=== PATIENT | female | born 1990 | race African-American/Black ===

== ENCOUNTER 2023-08-22 13:44 | Outpatient (RCR) | payer OTHER, SELFPAY ==
[2023-08-22 15:00] VITALS: BP 122/74; PULSE 87
[2023-08-22 15:28] LABS: Appearance Urine Clear (Clear); Bilirubin Urine Negative (Negative); Blood Urine Trace-intact (Negative); Color Urine Yellow (Yellow); Glucose Urine UA Negative (Negative); Ketones Urine Trace mg/dL (Negative); Leukocyte Esterase Ur Negative LEU/UL (Negative); Nitrate Urine Negative (Negative); Protein Urine Negative (Negative); Urobilinogen Urine 0.2 mg/dL (<2.0); pH Urine 6.5 (5.0-9.0)
[2023-08-22 15:34] LABS: Bacteria Urine None Seen /hpf; Non Pathogenic Casts 0-2; RBC Urine 0-2 /hpf (0-2); Squamous Epithelial Cell Urine None seen /hpf (Few); WBC Urine 0-5 /hpf
[2023-08-22 15:35] LABS: Add Urine Microscopic? YES
[2023-08-22 16:27] VITALS: BP 122/74; PULSE 87
== END 2023-10-03 11:25 | disposition home or self-care (01) ==
LOC: ANHOBOP 13:44
PROVIDERS: Visit Provider Obstetrics & Gynecology
DX: O26.893 Other specified pregnancy related conditions, third trimester (principal); Z3A.32 32 weeks gestation of pregnancy
CPT/HCPCS: 59025; 81001

== ENCOUNTER 2023-09-22 21:51 | Observation (INO) | payer OTHER, SELFPAY ==
--- NOTE | 2023-09-22 21:51 | OBADM ---
This patient, Emily Moreira, admitted to the OB room Labor/Delivery/Recovery 106 for observation. Patient/family oriented to hospital policies and general routines including ID bracelet, bed and alarms, visiting hours, pain management, procedures, bathroom and other care routines, personal items, smoking policy, room service/diet, and visiting hours. Patient/Family are encouraged to report perceived risks to care and to ask questions if they do not understand what they are told or what they should do.
[2023-09-22 22:08] VITALS: TEMP 36.8
--- NOTE | 2023-09-23 00:50 | PC.NURSE ---
Updated Dr. Lancaster on maternal and assessments. FHT appropriate for gestational age. Patient rayshawn regularly, contractions palpate mild-moderate. Patient tearful. ROM plus was negative. Orders received; patient may be discharged to home or if patient opts for stay for extended monitoring patient may due so if she feels more comfortable staying.
--- NOTE | 2023-09-23 00:55 | PC.NURSE ---
Plan of care discussed with patient. Patient states she would like to go home.
--- NOTE | 2023-09-23 01:05 | PC.NURSE ---
Discharge instructions reviewed with patient. During discharge instructions, labor precautions reviewed with patient. During review of labor precautions patient decided she would like to stay for monitoring in the hospital for a couple hours before being discharged to home.
[2023-09-23 03:20] VITALS: TEMP 36.8
--- NOTE | 2023-09-23 03:21 | PC.NURSE ---
Patient states pain is improved following interventions, stretching and positioning. Patient states she is able to rest comfortably and is able to sleep without complaint. Patient states she would like to go home at this time.
--- NOTE | 2023-09-23 03:23 | PC.NURSE ---
Discharge instructions reviewed with patient. Labor precautions reviewed. Patient instructed to follow up at her scheduled DrRoberto appointment with Dr. Wells this week. Patient states understanding of discharge instructions and denies questions.
--- NOTE | 2023-09-25 09:38 | PM.OBTRLD ---
OB - Triage/Final Diagnosis Visit Information Reason for evaluation: threatened labor Comments/Additional reasons for admission: I have assessed the risk for this patient, Emily T Lillie, and determined that she would benefit from observation care.
== END 2023-09-23 03:34 | disposition home or self-care (01) ==
PROVIDERS: Admitting Provider Obstetrics & Gynecology; Visit Provider Obstetrics & Gynecology
DX: O47.1 False labor at or after 37 completed weeks of gestation (principal); Z3A.37 37 weeks gestation of pregnancy
CPT/HCPCS: 84112; G0378; G0379

== ENCOUNTER 2023-10-01 07:51 | Inpatient (IN) | payer OTHER, SELFPAY ==
[2023-10-01] VITALS (61 sets, daily range): BP systolic 83–217; BP diastolic 42–200; PULSE 78–128; RESP 16–18; TEMP 36.5–38.3; O2SAT 79–100; BMI 31.2
--- NOTE | 2023-10-01 08:26 | PM.IMHP ---
H&P: HPI History of Present Illness Date/Time: 10/01/23 08:26 Chief Complaint: Contraction Narrative: Patient at 38 weeks presented to Labor and delivery with complaints of contractions regular. They started at midnight and increased at 3:00 a.m.. Cervical exam had changed to 3-4 cm on Labor and delivery today regular moderate contractions. She was admitted in active labor. Review of Systems Review of Systems: All systems reviewed & are unremarkable except as noted in HPI and below Constitutional: Constitutional: Reports no additional constitutional complaints and Denies headache(s) Eyes: Eyes: Denies spots in vision ENT: Reports system reviewed and no additional complaints, except as documented and Denies headache(s) Cardiovascular: Cardiovascular: Denies chest pain and Denies dyspnea Respiratory: Respiratory: Denies dyspnea Gastrointestinal: Gastrointestinal: Reports no additional gastrointestinal complaints Genitourinary: Genitourinary: Reports amenorrhea Musculoskeletal: Musculoskeletal: Reports no additional musculoskeletal complaints Integumentary/Breasts: Skin/Breast: Denies breast mass and Denies rash Neurologic: Denies headache(s) Psychiatric: Psychiatric: Reports no additional psychiatric complaints [facility] Past Medical History Medical History BMI 31.0-31.9,adult History of miscarriage x2 History of vaginal delivery x4 Surgical History Surgical History History of dilation and curettage 2014 Family History Family History Father Hypertension Mother Asthma Hypertension Sibling Asthma Grandparent Diabetes mellitus Maternal grandparent Social History Social History Smoking status: Never smoker Second hand tobacco smoke exposure: Yes Alcohol intake: former Substance use: never Substance use type: does not use Lack of Transportation: No Lack of Food: Never True Current Housing: I Have Housing Concerned About Future Housing: No Difficulty Paying Gas/Electric Bills: No Difficulty Paying for Meds: No Currently Unemployed: No Education: Trade/Vocational Certificate Difficulty w/ Childcare or Family Care: No Living arrangements: with family Occupation/Education: student Additional occupation/education comments: [employer] Gender identity (if verbalized by the patient): Female Sexual Orientation (if Verbalized by the Patient): Straight or Heterosexual Spiritual care concerns: No Meds Home Medications and Allergies Home Medications Medication Instructions Recorded Confirmed Type prenat.vits,mei,qcn-ltpo-nwsxh 1 tablet PO DAILY 04/16/23 10/01/23 History famotidine 20 mg tablet 20 mg PO BID #60 tabs 08/22/23 10/01/23 Rx ferrous sulfate 325 mg (65 mg 325 mg PO BID 08/22/23 10/01/23 History iron) tablet (Feosol) Allergies Allergy/AdvReac Type Severity Reaction Status Date / Time kiwi Allergy Hives Verified 09/26/23 11:40 Latex, Natural Rubber Allergy Swelling Verified 09/26/23 11:40 Exam Const: General: no acute distress Eyes: General: appearance normal, both eyes and all related structures Resp: Effort & Inspection: normal respiratory effort Cardio: Rate: regular rate GI: Other: Gravid no fundal tenderness no right upper quadrant pain Skin: General skin exam: no rashes or lesions noted Neuro: Cognition (Neuro): normal cognition Extrem: General: normal to inspection Psych: Mental Status: mental status grossly normal Assessment and Plan Assessment and plan (1) Active labor: Status: Acute Assessment and Plan: Admit. Display vaginal delivery.
[2023-10-01] MEDS: fentaNYL CITRATE INJ (*CRX) 100 MCG/2 ML VIAL IV PUSH (08:31)
[2023-10-01] MEDS: LACTATED RINGERS 1,000 ML 125 ML IV CONT ×2 (08:31→09:19)
[2023-10-01 08:36] LABS: Basophils Percent Auto 0.2 % (0.2-1.2); Eosinophils Absolute Auto 0.1 K/mm3 (0-0.3); Eosinophils Percent Auto 0.3 % (0-4.4); Hematocrit 29.5 % (37.0-47.0); Hemoglobin 9.2 g/dL (12.0-15.0); Immature Granulocyte Percent A 0.6 % (0-0.5); Lymphocytes Absolute Auto 1.34 K/mm3 (0.9-3.2); Lymphocytes Percent Auto 8.5 % (18.3-44.2); Mean Corpuscular HGB Conc 31.2 g/dl (32-36); Mean Corpuscular Hemoglobin 25.8 pg (26-34); Mean Corpuscular Volume 82.9 fl (80-100); Mean Platelet Volume 12.8 fl (7.4-10.4); Monocytes Absolute Auto 1.2 K/mm3 (0.1-0.6); Monocytes Percent Auto 7.6 % (2.6-8.5); Neutrophils Absolute Auto 13.1 K/mm3 (1.3-6.7); Neutrophils Percent Auto 82.8 % (45.5-73.1); Platelet Count Result 208 k/mm3 (150-375); Red Blood Count 3.56 M/mm3 (4.2-5.4); Red Cell Distribution Width 13.7 % (11.5-14.5); White Blood Count 15.8 K/mm3 (4.5-10.0)
--- NOTE | 2023-10-01 08:42 | WPDANESEPP ---
Anes - Eval Pre Procedure Procedure: labor epidural Date/Time: 10/01/23 08:42 Surgeon: edward Preop Diagnosis: pain during labor Pre Op Diagnosis: Contractions Patient Data Age: 33 Gender: F Height: Weight: Last Vital Signs Pulse 80 10/01/23 08:35 BP 130/81 10/01/23 08:35 Allergies Allergy/AdvReac Type Severity Reaction Status Date / Time kiwi Allergy Hives Verified 09/26/23 11:40 Latex, Natural Rubber Allergy Swelling Verified 09/26/23 11:40 Home Medications Medication Instructions Recorded Confirmed Type prenat.vits,mei,kto-qbbn-qddpb 1 tablet PO DAILY 04/16/23 09/22/23 History famotidine 20 mg tablet 20 mg PO BID #60 tabs 08/22/23 09/22/23 Rx ferrous sulfate 325 mg (65 mg 325 mg PO BID 08/22/23 09/22/23 History iron) tablet (Feosol) Laboratory Tests 10/01/23 08:28 WBC 15.8 H K/mm3 (4.5-10.0) RBC 3.56 L M/mm3 (4.2-5.4) Hgb 9.2 L g/dL (12.0-15.0) Hct 29.5 L % (37.0-47.0) MCV 82.9 fl (80-100) MCH 25.8 L pg (26-34) MCHC 31.2 L g/dl (32-36) RDW 13.7 % (11.5-14.5) Plt Count 208 k/mm3 (150-375) MPV 12.8 H fl (7.4-10.4) Immature Gran % (Auto) 0.6 H % (0-0.5) Neut % (Auto) 82.8 H % (45.5-73.1) Lymph % (Auto) 8.5 L % (18.3-44.2) [place] % (Auto) 7.6 % (2.6-8.5) Eos % (Auto) 0.3 % (0-4.4) Baso % (Auto) 0.2 % (0.2-1.2) Lymph # (Auto) 1.34 K/mm3 (0.9-3.2) [place] # (Auto) 1.2 H K/mm3 (0.1-0.6) Eos # (Auto) 0.1 K/mm3 (0-0.3) Baso # (Auto) 0.0 K/mm3 (0.0-0.1) Abs Immat Gran (auto) 0.10 H K/mm3 (0.00-0.031) Absolute Neuts (auto) 13.1 H K/mm3 (1.3-6.7) Absolute Nucleated RBC 0.0 K/mm3 (0.0-0.012) Nucleated RBC % 0.0 % (0.0-0.2) RPR Pending Patient hx anesthesia problems: none Family hx anesthesia problems: none Results Review: All pre-operative results and documents have been reviewed as part of the pre-operative evaluation. [facility] Past Medical History Medical History BMI 31.0-31.9,adult History of miscarriage x2 History of vaginal delivery x4 Surgical History Surgical History History of dilation and curettage 2013 Family History Family History Father Hypertension Mother Asthma Hypertension Sibling Asthma Grandparent Diabetes mellitus Maternal grandparent Social History Social History Smoking status: Never smoker Second hand tobacco smoke exposure: Yes Alcohol intake: former Substance use: never Substance use type: does not use Lack of Transportation: No Lack of Food: Never True Current Housing: I Have Housing Concerned About Future Housing: No Difficulty Paying Gas/Electric Bills: No Difficulty Paying for Meds: No Currently Unemployed: No Education: Associate Degree Difficulty w/ Childcare or Family Care: No Living arrangements: with family Occupation/Education: student Additional occupation/education comments: [employer] Gender identity (if verbalized by the patient): Female Sexual Orientation (if Verbalized by the Patient): Straight or Heterosexual Spiritual care concerns: No Exam Day of Procedure 10/01/23 08:42 Patient weight: overweight Heart: regular rate and rhythm Lungs: normal air movement Airway: Mallampati scale class II Neurological: alert and oriented
--- NOTE | 2023-10-01 09:37 | LDADM ---
This patient, Emily Moreira, was admitted to Labor/Delivery/Recovery 105 on 10/01/23 at 07:51. Plans for labor, pain management and were discussed with patient. Patient/family oriented to hospital policies and general routines including ID bracelet, bed and alarms, visiting hours, pain management, procedures, bathroom and other care routines, personal items, smoking policy, room service/diet and guest tray routines, infant security routines, and visiting hours. Patient/Family are encouraged to report perceived risks to care and to ask questions if they do not understand what they are told or what they should do. See [facility] for further documentation.
[2023-10-01] MEDS: FAMOTIDINE 20 MG/2 ML VIAL IV PUSH (10:12)
[2023-10-01] MEDS: ONDANSETRON INJ 4 MG/2 ML VIAL IV PUSH (11:18)
[2023-10-01] MEDS: OXYTOCIN 30 UNITS/NS 500 ML 30 UNITS/500 ML BAG IV CONT (11:18)
[2023-10-01] MEDS: LORATADINE 10 MG TABLET PO (13:15)
[2023-10-01] MEDS: OXYTOCIN 30 UNITS/NS 500 ML 30 UNITS/500 ML BAG 125 UNITS IV CONT (16:03)
[2023-10-01] MEDS: ACETAMINOPHEN 500 MG TABLET 1000 MG PO (16:18)
[2023-10-01 16:33] LABS: Rapid Plasma Reagin Non-Reactive (NonReactive)
[2023-10-01 17:00] LABS: SARS-CoV-2 RNA PCR Negative (Negative)
[2023-10-01] MEDS: BENZOCAINE 20% AER SPR (*SP) 56 GM CAN 1 SPRAY TOPICAL (17:48)
[2023-10-01] MEDS: WITCH HAZEL 40 PADS 1 PAD TOPICAL (17:48)
--- NOTE | 2023-10-01 18:12 | OBPPTRN ---
Patient transferred to post room #285 via wheelchair. Support person present. Oriented to unit, room, information board, rooming in, admission packet and security measures. Patient verbalizes understanding.
[2023-10-01] MEDS: IBUPROFEN 600 MG TABLET PO (20:04)
[2023-10-02] MEDS: ACETAMINOPHEN 325 MG TABLET 650 MG PO (03:24)
[2023-10-02] MEDS: guaiFENesin/DEXTROMETHORPHAN 10 ML UDC PO ×3 (04:41→18:39)
[2023-10-02 04:51] VITALS: BP 114/63; PULSE 73; RESP 18; TEMP 36.7; O2SAT 99
[2023-10-02 05:44] LABS: Hemoglobin 7.8 g/dL (12.0-15.0)
--- NOTE | 2023-10-02 07:10 | PC.NURSE ---
PT introductions made and plan of care discussed per post , pain management, breast feeding, daily care activities. PT sole recipient of such instructions and no barriers to learning identified at this time. PT received such instructions per one to one discussion, mom baby care guide and demonstrations this shift. PT verbalized understanding of such care.
--- NOTE | 2023-10-02 07:54 | PM.OBPRVD ---
OB - Vaginal Delivery Note Procedure Delivery date: 10/02/23 Delivery augmentation: Rupture of Membranes Delivery monitor: External FHT Route of delivery: Episiotomy description: None Specimen: No Quantitative Blood Loss (ml): 200 Anesthesia type: Epidural Disposition: Floor Complications: No immediate complications Narrative: She was admitted and labor. She had assisted rupture of membranes with clear fluid. At that time she was 8 cm. She then had an epidural. She did not make much change and had a small amount of Pitocin and then dilated to complete. She had a low-grade temp of 100.2? prior to delivery. She delivered a male over an intact perineum infant had a tight nuchal cord which was surgically reduced at the perineum the nose and mouth were suctioned at the perineum and the infant was placed on maternal abdomen vigorously crying. The placenta delivered spontaneously and intact no lacerations. She did have a temp of 101? within less than an hour after delivery she was given Tylenol and a COVID test was performed due to her history of coughing she did state that she had a negative test at home 2 days ago. Baby Date of : 10/01/23 Time of : 15:22 Weeks of gestation at delivery: 38 gender: Male Weight (pounds): 6 Weight (ounces): 10 presentation: vertex position: Right Occiput Anterior Placenta delivery description: Spontaneous Cord Vessel Description: 3 Vessels, Nuchal Cord, Tight and Reduced (Surgically) score one minute: 8 score five minutes: 9 AMG Delivery Billing Delivery Delivery: Delivery Charge
[2023-10-02 07:56] VITALS: BP 129/74; PULSE 71; RESP 16; TEMP 36.5; O2SAT 98
--- NOTE | 2023-10-02 07:58 | PM.OBPNVD ---
OB - PN: Subj Subjective Date/time seen: 10/02/23 07:58 Patient comments: pain well controlled, tolerating diet and other (Decreasing lochia.) baby status: doing well and nursing well [place] feeding status: exclusively breast feeding OB - PN: Obj Data Labs 10/02/23 03:36 Labs: Laboratory Results - last 24 hr 10/01/23 10/01/23 10/02/23 08:28 16:13 03:36 WBC 15.8 H RBC 3.56 L Hgb 9.2 L 7.8 L Hct 29.5 L 25.0 L MCV 82.9 MCH 25.8 L MCHC 31.2 L RDW 13.7 Plt Count 208 MPV 12.8 H Immature Gran % (Auto) 0.6 H Neut % (Auto) 82.8 H Lymph % (Auto) 8.5 L [place] % (Auto) 7.6 Eos % (Auto) 0.3 Baso % (Auto) 0.2 Lymph # (Auto) 1.34 [place] # (Auto) 1.2 H Eos # (Auto) 0.1 Baso # (Auto) 0.0 Abs Immat Gran (auto) 0.10 H Absolute Neuts (auto) 13.1 H Absolute Nucleated RBC 0.0 Nucleated RBC % 0.0 RPR Non-reactive SARS-CoV-2 RNA (RT-PCR) Negative Blood Type O Positive Antibody Screen Negative OB - PN A/P Plan day: 1 Plan: routine care Comments: Patient doing well. Continue routine care. Time Spent With Patient Time: Total time spent is greater than 50% in coordination of care (as documented) at patient's floor/unit and/or counseling patient: Exam Psych: Affect: normal affect Other: Abd: fundus firm below umbilicus, nontender Ext: nontender
[2023-10-02] MEDS: ACETAMINOPHEN 500 MG TABLET 1000 MG PO ×2 (09:43→17:40)
[2023-10-02] MEDS: LANOLIN (LANSINOH) 7.5 GM CREAM 1 APPLIC TOPICAL (09:43)
[2023-10-02] MEDS: POLYSACCHARIDE IRON COMPLEX 150 MG CAPSULE PO ×2 (09:44→17:41)
[2023-10-02] MEDS: MULTIVIT/MIN/PREN/FOL AC/IRON TABLET 1 TAB PO (09:44)
[2023-10-02] MEDS: IBUPROFEN 600 MG TABLET PO ×2 (09:44→17:40)
[2023-10-02 09:45] VITALS: PULSE 71; RESP 16; O2SAT 98
[2023-10-02] MEDS: DOCUSATE SODIUM 100 MG CAPSULE PO ×2 (09:45→17:41)
--- NOTE | 2023-10-02 10:22 | WPDANLDPN2 ---
Anes-Prog Note L&D Date/Time: 10/02/23 10:22 Comfortable throughout: labor and delivery Neuraxial method: epidural Epidural/Spinal procedure site: clean & non-tender Neuro status: Neuro function grossly intact. Cardiovascular status: normal Respiratory status: normal Airway patency: baseline Mental status: baseline Post-Op hydration status: normal Vital Signs: Last Vital Signs Temp 36.5 C 10/02/23 07:56 Pulse 71 10/02/23 07:56 Resp 16 10/02/23 07:56 BP 129/74 10/02/23 07:56 Pulse Ox 98 10/02/23 07:56 O2 Del Method Room Air 10/01/23 09:21 Pain score (VAS): 11/27 Post-procedural complaints: none Patient feedback: Patient satisfied with anesthetic care.
--- NOTE | 2023-10-02 11:15 | PC.NURSE ---
On 10/02/23, the student, Dina Silver, provided care and completed [facility] documentation on this patient. I have reviewed the student's documentation and agree with the findings.
[2023-10-02 12:21] VITALS: BP 106/58; PULSE 84; RESP 16; TEMP 36.9; O2SAT 97
[2023-10-02] MEDS: SIMETHICONE 80 MG TAB.CHEW PO (17:40)
[2023-10-02 19:00] VITALS: BP 123/83; PULSE 70; RESP 16; TEMP 36.5; O2SAT 99
[2023-10-03] MEDS: guaiFENesin/DEXTROMETHORPHAN 10 ML UDC PO ×3 (01:05→15:02)
[2023-10-03] MEDS: IBUPROFEN 600 MG TABLET PO ×2 (05:47→15:03)
[2023-10-03] MEDS: ACETAMINOPHEN 325 MG TABLET 650 MG PO ×2 (05:47→15:03)
--- NOTE | 2023-10-03 07:30 | PC.NURSE ---
PT introductions made and plan of care discussed per post , pain management, breast feeding, daily care activities and pending discharge. PT sole recipients of such instructions and no barriers to learning identified at this time. PT received such instructions per one to one discussion, mom baby care guide and demonstrations this shift and pt verbalized understanding of such care.
[2023-10-03 08:15] VITALS: BP 129/80; PULSE 72; RESP 16; TEMP 37; O2SAT 98
[2023-10-03] MEDS: DOCUSATE SODIUM 100 MG CAPSULE PO (09:14)
[2023-10-03] MEDS: POLYSACCHARIDE IRON COMPLEX 150 MG CAPSULE PO (09:14)
[2023-10-03] MEDS: MULTIVIT/MIN/PREN/FOL AC/IRON TABLET 1 TAB PO (09:14)
[2023-10-03] MEDS: SIMETHICONE 80 MG TAB.CHEW PO ×2 (09:14→15:02)
[2023-10-03 09:15] VITALS: PULSE 72; RESP 16; O2SAT 98
--- NOTE | 2023-10-03 11:45 | PC.NURSE ---
[id number] Purposefully rounded to introduce and assess for needs. Mother is sleeping, but awakens upon RN entering the room. Mother states she is well without pain, has success history and RN's name is written on the board for calling for assistance with if there's pain, doesn't wake to feed or any questions or concerns.
--- NOTE | 2023-10-03 14:30 | PC.NURSE ---
Patient was given the opportunity to view the discharge video Mother & Baby Care, The First Two Weeks and to ask questions. Patient declined viewing the video and has been given the mother/baby guide for home reference. Pt received discharge instructions per protocol and verbalized understanding of such care.
--- NOTE | 2023-10-03 16:15 | PC.NURSE ---
PT discharged to home ambulatory accompanied by spouse and and taken to waiting car. Follow up appts confirmed
[2023-10-04 10:15] VITALS: BP 132/86; PULSE 72; RESP 18; TEMP 36.8; O2SAT 100
--- NOTE | 2023-10-04 12:31 | PM.OBDSVD ---
DS: Admitting Diagnosis Discharge Date 10/03/23 Admitting Diagnosis Active labor DS: Discharge Diagnosis Discharge Diagnosis (1) Vaginal delivery: Code(s): O80 - Encounter for full-term uncomplicated delivery Status: Acute OB - DS: Summary Hospital Course Hospital Course: She was admitted in active labor. She had assisted rupture of membranes. She had epidural placed on request. She had an uncomplicated vaginal delivery. She did well and was discharged to home on day 2. Baby did well. OB Procedures : Ultrasound OB Procedures Intrapartum: Spontaneous Vag Delivery OB Procedures: : None Peripartum Data Infant Delivery Method: Natural Vaginal Episiotomy description: None complications: none Status at Discharge Functional status at discharge: independent ambulation Time Spent with Patient Time attestation: Total time spent providing and/or coordinating discharge services: Exam Const: General: cooperative Orientation/consciousness: oriented to person, oriented to place and oriented to time HENMT: Face/Nose/Sinus: Normal external nose present Eyes: General: appearance normal, both eyes and all related structures Resp: Effort & Inspection: normal respiratory effort GI: Inspection: normal to inspection Skin: General skin exam: normal color Neuro: General: oriented to person, oriented to place and oriented to time Extrem: General: normal to inspection and no calf tenderness Psych: Appearance: grossly normal Mental Status: mental status grossly normal Discharge Plan Discharge Attending physician on discharge: Kip Wells Consulting providers: Juan Jose Garvin; Eli Barajas Discharging Clinician: Kip Wells Anticipated Discharge Date/Time: 10/03/23 13:29 Patient Disposition: Home, Self-Care Activity: may shower and pelvic rest Diet: regular Discharge Instructions: Take vitamins daily. Education: Mom and Baby Guide Given to: Mother Follow-Up: Call your delivering provider's office for an appointment to be seen in: 6 Weeks Mom and baby should come to the [facility] for the follow-up appointment. Appointment Date/Time: October 04, 2023 at 10:00 am What to expect at your follow-up visit: Blood Pressure Check Call [phone] if you are unable to keep your appointment time. BREAST CARE: * Wear a snug supportive bra. * For engorgement discomfort: Breast Feeding: * Apply warm moist washcloths * Express milk as needed to relieve engorgement * Wear loose clothing Bottle Feeding: * May apply ice packs * For sore nipples: * Identify correct latch-on * Apply warm moist washcloths before and after nursing * Air dry nipples after nursing * May apply Lansinoh cream to nipples PERINEAL CARE: * Until bleeding stops, use your gris bottle after urinating * Change your pad frequently throughout the day * You may take sitz baths several times a day (fill your bathtub with warm water and soak for 20 minutes.) Do NOT bathe in the water * No tub baths until seen by your physician - You may shower ACTIVITY: * Rest as much as possible. * Do not exercise or lift anything heavier than your baby (such as laundry or other children.) * Avoid stairs or driving as much as possible. * Do not put anything into the vagina. No douching, tampons, or sexual activity until seen by physician. NOTIFY PHYSICIAN IF YOU HAVE ANY QUESTIONS OR IF ANY OF THE FOLLOWING SYMPTOMS OCCUR: * If your perineum becomes red, swollen, or more painful than what you have experienced in the hospital. * If your vaginal bleeding becomes foul smelling. * If your vaginal bleeding becomes more heavy than a period or if your bleeding changes from pink to bright red. However, you may pass an occasional walnut-sized clot once or twice
== END 2023-10-03 16:15 | disposition home or self-care (01) | DRG 560 ==
LOC: ANHLDR 08:20 → ANHOB2 18:34
PROVIDERS: Admitting Provider Obstetrics & Gynecology; Visit Provider Obstetrics & Gynecology
DX: O75.2 Pyrexia during labor, not elsewhere classified (principal); Z37.0 Single live birth; O69.1XX0 Labor and delivery complicated by cord around neck, with compression, not applicable or unspecified; Z3A.38 38 weeks gestation of pregnancy
CPT/HCPCS: 36415; 85014; 85018; 85025; 86592; 86850; 86900; 86901; 87635; A9270; J2405; J2590; J2795; J3010; J7120

== ENCOUNTER 2023-12-02 14:15 | Outpatient (CLI) | payer OTHER, SELFPAY ==
--- NOTE | ~2023-12-02 | US_ITS ---
EXAMINATION: US pelvic complete DATE: 12/02/2023 15:04 INDICATION: Inflammatory disease of the uterus, bleeding for two months TECHNIQUE: Multiple transabdominal and endovaginal sonographic images of the pelvis were obtained. COMPARISON: None. FINDINGS: The uterus measures 10.7 x 3.6 x 6.1 cm. There are multiple echogenic, nonshadowing myometr ial foci predominantly in the posterior uterine body. The endometrial complex measures 4 mm. The righ t ovary measures 2.9 x 1.2 x 2.3 cm. The left ovary measures 4.0 x 1.3 x 3.5 cm. There is normal vasc ular flow in the ovaries. There is no free fluid in the pelvis. IMPRESSION: 1. Multiple nonshadowing echogenic foci of the uterine body which could relate to prior D&C. Reviewed, dictated and finalized at location [facility]. [facility] [employer]
[2023-12-02 15:37] LABS: Hematocrit 35.8 % (37.0-47.0); INR 0.9; Immature Platelet Fraction Pct 9.5 % (0.9-11.2); Mean Corpuscular HGB Conc 30.7 g/dl (32-36); Mean Corpuscular Hemoglobin 24.8 pg (26-34); Mean Corpuscular Volume 80.6 fl (80-100); Platelet Count Result 177 k/mm3 (150-375); Prothrombin Time 12.9 Seconds (11.1-14.7); Red Blood Count 4.44 M/mm3 (4.2-5.4); Red Cell Distribution Width 14.9 % (11.5-14.5)
[2023-12-02 15:38] LABS: Partial Thromboplastin Time 37.7 SECONDS (22.3-36.8)
[2023-12-02 15:56] LABS: Beta HCG Quantitative < 2.39 mIU/ML
== END 2023-12-02 14:16 | disposition home or self-care (01) ==
PROVIDERS: PCP Registered Nurse; Visit Provider Registered Nurse
DX: N71.9 Inflammatory disease of uterus, unspecified (principal); N93.9 Abnormal uterine and vaginal bleeding, unspecified
CPT/HCPCS: 36415; 76856; 84702; 85027; 85055; 85610; 85730